=== PATIENT | male | born 1935 | race Caucasian/White ===

== ENCOUNTER 2017-12-14 08:22 | Emergency (ER) | payer OTHER ==
[~2017-12-14] VITALS: Ht 157.5 cm; Wt 71.7 kg
[2017-12-14] MEDS ORDERED: TOPROL XL25 M1 (08:46)
[2017-12-14] MEDS ORDERED: METFORMIN HCL1000 MG (08:46)
[2017-12-14] MEDS ORDERED: ZANTAC300 MG (08:46)
[2017-12-14] MEDS ORDERED: CLONAZEPAM0.5 MG (08:46)
[2017-12-14] MEDS ORDERED: COZAAR50 MG (08:46)
[2017-12-14] MEDS ORDERED: LOTREL 5-10 MG1 CAP (08:46)
[2017-12-14] MEDS ORDERED: PLAVIX75 MG (08:47)
[2017-12-14] MEDS ORDERED: ZOLOFT50 MG (08:47)
[2017-12-14] MEDS ORDERED: CASODEX50 MG (08:47)
[2017-12-14] MEDS ORDERED: FOLIC ACID1 MG (08:47)
[2017-12-14] MEDS ORDERED: ASA-EC81 MG (08:47)
== END 2017-12-14 14:53 | disposition home or self-care (01) ==
LOC: ER 08:22
DX: I82.541 Chronic embolism and thrombosis of right tibial vein (principal); I87.2 Venous insufficiency (chronic) (peripheral); I77.89 Other specified disorders of arteries and arterioles; R60.0 Localized edema; M79.604 Pain in right leg

== ENCOUNTER 2021-08-26 08:43 | Outpatient (CLI) | payer OTHER ==
[~2021-08-26 08:43] MED LIST: ASA-EC81 MG; CASODEX50 MG; CLONAZEPAM0.5 MG; COZAAR50 MG; FOLIC ACID1 MG; LOTREL 5-10 MG1 CAP; METFORMIN HCL1000 MG; PLAVIX75 MG; TOPROL XL25 M1; ZANTAC300 MG; ZOLOFT50 MG
== END 2021-08-26 08:44 | disposition home or self-care (01) ==
LOC: NUCLEAR 08:43
PROVIDERS: ATTEND Specialist
DX: I73.9 Peripheral vascular disease, unspecified (principal)

== ENCOUNTER 2021-08-28 11:15 | Outpatient (CLI) | payer OTHER | END 2021-08-28 11:19 | disposition home or self-care (01) | LOC: NUCLEAR 11:15 | PROVIDERS: ATTEND Specialist | DX: I87.2 Venous insufficiency (chronic) (peripheral) (principal) ==